=== PATIENT | female | born 1990 | race Caucasian/White ===

== ENCOUNTER 2020-07-10 11:17 | Outpatient (CLI) | payer OTHER, SELFPAY ==
[2020-07-10 12:53] LABS: Free T4 Free Thyroxine 0.96 ng/mL (0.78-2.19); Vitamin D 25 Hydroxy 49.7 ng/mL
== END 2020-07-10 11:18 | disposition home or self-care (01) ==
PROVIDERS: PCP Family Medicine; Visit Provider Nurse Practitioner
DX: E55.9 Vitamin D deficiency, unspecified (principal); E53.8 Deficiency of other specified B group vitamins
CPT/HCPCS: 36415; 82306; 82607; 84439; 84443

== ENCOUNTER 2020-09-18 08:25 | Outpatient (CLI) | payer OTHER, SELFPAY ==
[2020-09-18 08:53] LABS: Hemoglobin A1C 5.5 % (<5.7)
[2020-09-18 08:58] LABS: Alanine Aminotransferase 13 U/L (4-35); Albumin Level 4.3 g/dL (3.5-5.1); Alkaline Phosphatase 84 U/L (38-126); Anion Gap 9 mmol/L (8-16); Aspartate Amino Transferase 18 U/L (14-36); Bilirubin,Total 0.3 mg/dL (0.2-1.3); Blood Urea Nitrogen 10 mg/dL (7-17); CRP 3.1 mg/dL (<1.0); Calcium 9.4 mg/dL (8.4-10.2); Carbon Dioxide 27 mmol/L (22-30); Chloride 103 mmol/L (98-107); Cholesterol 176 mg/dL (0-200); Estimated Glomerular Filt Rate > 60; Glucose 108 mg/dL (65-105); HDL Direct 48 mg/dL; Potassium 4.5 mmol/L (3.4-5.0); Sodium 139 mmol/L (137-145); Triglycerides 99 mg/dL (<150)
[2020-09-18 09:07] LABS: LDL Cholesterol Direct 102 mg/dL
== END 2020-09-18 08:26 | disposition home or self-care (01) ==
PROVIDERS: PCP Family Medicine; Visit Provider Nurse Practitioner
DX: Z13.9 Encounter for screening, unspecified (principal)
CPT/HCPCS: 36415; 80053; 80061; 83036; 86140

== ENCOUNTER 2020-10-01 10:23 | Outpatient (CLI) | payer OTHER, SELFPAY ==
[2020-10-01 11:06] LABS: Glucose 98 mg/dL (65-105)
== END 2020-10-01 10:24 | disposition home or self-care (01) ==
LOC: ANHLAB 10:27
PROVIDERS: PCP Family Medicine; Visit Provider Obstetrics & Gynecology Gynecology
DX: R79.9 Abnormal finding of blood chemistry, unspecified (principal)
CPT/HCPCS: 36415; 82947

== ENCOUNTER 2021-07-10 13:20 | Outpatient (CLI) | payer OTHER, SELFPAY ==
[2021-07-10 17:23] LABS: Free T4 Free Thyroxine 0.97 ng/mL (0.78-2.19); Vitamin D 25 Hydroxy 44.4 ng/mL
== END 2021-07-10 13:21 | disposition home or self-care (01) ==
LOC: ANHLAB 13:24
PROVIDERS: PCP Family Medicine; Visit Provider Nurse Practitioner
DX: E55.9 Vitamin D deficiency, unspecified (principal); Z13.29 Encounter for screening for other suspected endocrine disorder
CPT/HCPCS: 36415; 82306; 84439; 84443

== ENCOUNTER 2021-12-29 15:32 | Outpatient (CLI) | payer OTHER, SELFPAY ==
[2021-12-29 18:34] LABS: Total Triiodothyronine (T3) 1.51 NG/ML (0.97-1.69)
[2022-01-02 06:35] LABS: Thyroid Peroxidase Antibodies <1 IU/mL (<9)
== END 2021-12-29 15:33 | disposition home or self-care (01) ==
LOC: ANHOBOP 15:33
PROVIDERS: PCP Family Medicine; Visit Provider Family Medicine
DX: Z34.90 Encounter for supervision of normal pregnancy, unspecified, unspecified trimester (principal); Z3A.00 Weeks of gestation of pregnancy not specified
CPT/HCPCS: 36415; 84439; 84443; 84480; 86376

== ENCOUNTER 2021-12-30 11:06 | Outpatient (CLI) | payer OTHER, SELFPAY ==
--- NOTE | ~2021-12-30 | US_ITS ---
EXAMINATION: US thyroid EXAM DATE: 12/30/2021 11:26 INDICATION: E04.9 - Nontoxic goiter, unspecified . TECHNIQUE: Multiple grayscale and Doppler images of the thyroid were obtained (by a technologist who performed the scan) and subsequently reviewed. Individual nodules and recommendations may be reporte d in accordance with TI-RADS system as designated by the 2017 ACR White Paper TI-RADS committee. The re is no prior study for comparison. FINDINGS: The right thyroid lobe measures 4.5 x 1.5 x 1.4 cm, the left measuring 5.2 x 1.3 x 1.6 cm. There are a couple of nodules up to 3 mm in size, not clinically significant. IMPRESSION: 1. Unremarkable thyroid ultrasound exam. Reviewed, dictated and finalized at location [facility]
== END 2021-12-30 11:07 | disposition home or self-care (01) ==
LOC: ANHIMG 11:08
PROVIDERS: PCP Family Medicine; Visit Provider Family Medicine
DX: E04.9 Nontoxic goiter, unspecified (principal)
CPT/HCPCS: 76536

== ENCOUNTER 2022-01-19 01:22 | Day surgery (SDC) | payer OTHER, SELFPAY ==
[2022-01-11 13:30] VITALS: BMI 46.5
[2022-01-19 11:32] VITALS: BP 143/97; PULSE 103; RESP 18; TEMP 37.3; O2SAT 100
[2022-01-19] MEDS: LACTATED RINGERS 1,000 ML 150 ML IV CONT (11:39)
--- NOTE | 2022-01-19 11:42 | WPDGICN ---
Assessment and Plan Assessment and plan (1) History of colon polyps: Code(s): Z86.010 - Personal history of colonic polyps Status: Acute Assessment and Plan: Patient has a history of colon polyps. Plan is for surveillance colonoscopy at this time. (2) Endometriosis: Code(s): N80.9 - Endometriosis, unspecified Status: Acute Assessment and Plan: Patient known to have endometriosis. In the last several years she underwent surgery requiring resection of a portion of her colon because of implants of endometriosis on the external side of colon. GI Consult Note Consult date/time: 01/19/22 11:42 HPI: Carol Lester is a 32 year old female Presents for screening surveillance colonoscopy. Patient has a history of colon polyps identified by colonoscopy 2018. At that time she also had submucosal lesions. The superficial biopsies of these were not fruitful. Patient subsequently has been seen and followed by gynecology service she had surgery for endometriosis which required partial colectomy. It is presumed the submucosal lesions were endometrial implants on the colon. Patient presents today for follow-up colonoscopy because of prior history of colon polyps she states that her current weight appetite bowel movements are normal. Family history is noncontributory. Review of Systems Review of Systems: All systems reviewed & are unremarkable except as noted in HPI and below PMFSH Past Medical History Medical History (Updated 01/19/22 @ 11:43 by Mik Schuster MD) Endometrioma Endometriosis Surgical History Surgical History (Updated 12/24/21 @ 09:33 by Angelika Espinoza MD) History of colon resection Family History Family History (Updated 12/24/21 @ 09:20 by Angelika Espinoza MD) Mother Family history of thyroid disease Hyperthyroidism Father Hypertension Grandparent Malignant neoplasm of prostate Family history of lung cancer Sibling Rheumatoid arthritis PCOS (polycystic ovarian syndrome) Social History Social History (Updated 12/24/21 @ 08:50 by Jami Campbell) Social History: Smoking status: Never smoker Second hand tobacco smoke exposure: No Alcohol intake: current Alcohol use details: drinks twice a year Substance use: never Substance use type: does not use Living arrangements: with family Gender identity (if verbalized by the patient): Female Sexual Orientation (if Verbalized by the Patient): Straight or Heterosexual Spiritual care concerns: No Meds Home Medications and Allergies Home Medications Medication Instructions Recorded Confirmed Type cholecalciferol (vitamin D3) 1,250 1,250 mcg PO WEEKLY 12/24/21 01/11/22 History mcg (50,000 unit) capsule sertraline 50 mg tablet 50 mg PO DAILY 12/24/21 01/11/22 History Allergies Allergy/AdvReac Type Severity Reaction Status Date / Time No Known Allergies Allergy Verified 01/19/22 11:28 Vital Signs Vital Signs - 24 hr 01/19/22 11:32 Temperature 99.2 F Pulse Rate 103 H Respiratory Rate 18 Blood Pressure 143/97 H Pulse Oximetry 100 Exam Narrative: Physical exam reveals patient to be alert. Vital signs stayed. HE EENT exam is unremarkable. Patient is anicteric. Lungs are clear to auscultation and percussion. Heart is without murmur or extra sounds. Abdominal exam bowel sounds present soft nontender with no hepatosplenomegaly. Digital external rectal exam is normal.
--- NOTE | 2022-01-19 11:47 | P.PNAN_ITS ---
Anes - Initial Pre Proc Eval Procedure: Operation Date: 01/19/22 13:30 Proposed Procedures p Screening Colonoscopy - Mik Schuster MD Date/Time: 01/19/22 11:47 Surgeon: Mik Schuster MD Pre Op Diagnosis: hx of colon polyps/mass, hx of colon resection Patient Data Age: 32 Gender: F Height: 1.65 m Weight: 129.1 kg Last Vital Signs Temp 99.2 F 01/19/22 11:32 Pulse 103 H 01/19/22 11:32 Resp 18 01/19/22 11:32 BP 143/97 H 01/19/22 11:32 Pulse Ox 100 01/19/22 11:32 Allergies Allergy/AdvReac Type Severity Reaction Status Date / Time No Known Allergies Allergy Verified 01/19/22 11:28 Home Medications Medication Instructions Recorded Confirmed Type cholecalciferol (vitamin D3) 1,250 1,250 mcg PO WEEKLY 12/24/21 01/11/22 History mcg (50,000 unit) capsule sertraline 50 mg tablet 50 mg PO DAILY 12/24/21 01/11/22 History Patient hx anesthesia problems: none Family hx anesthesia problems: none Results Review: All pre-operative results and documents have been reviewed as part of the pre-operative evaluation. [facility] Past Medical History Medical History (Updated 01/19/22 @ 11:43 by Mik Schuster MD) Endometrioma Endometriosis Surgical History Surgical History (Updated 12/24/21 @ 09:33 by Angelika Espinoza MD) History of colon resection Family History Family History (Updated 12/24/21 @ 09:20 by Angelika Espinoza MD) Mother Family history of thyroid disease Hyperthyroidism Father Hypertension Grandparent Malignant neoplasm of prostate Family history of lung cancer Sibling Rheumatoid arthritis PCOS (polycystic ovarian syndrome) Social History Social History (Updated 12/24/21 @ 08:50 by Jami Campbell) Social History: Smoking status: Never smoker Second hand tobacco smoke exposure: No Alcohol intake: current Alcohol use details: drinks twice a year Substance use: never Substance use type: does not use Living arrangements: with family Gender identity (if verbalized by the patient): Female Sexual Orientation (if Verbalized by the Patient): Straight or Heterosexual Spiritual care concerns: No Anes - Eval Final PreProcedure Day of Procedure 01/19/22 11:47 Patient weight: morbidly obese Heart: regular rate and rhythm Lungs: clear to auscultation Airway: Mallampati scale class II Neurological: alert and oriented Last oral intake: >/= 8 hours ASA classification: III Emergent: no Anesthetic plan: proceed Anesthesia type and monitoring: general GIVS and standard monitoring Results Review: All pre-operative results and documents have been reviewed as part of the pre-operative evaluation. Informed Consent: The patient's anesthetic plan and its attendant risks and benefits were discussed with the patient/family/POA. Questions were solicited and answers provided to the satisfaction of the patient/family/POA.
[2022-01-19 12:21] VITALS: BP 112/72; PULSE 74; RESP 21; O2SAT 98
[2022-01-19 12:31] VITALS: BP 123/79; PULSE 75; RESP 18; O2SAT 100
[2022-01-19 12:41] VITALS: BP 131/83; PULSE 76; RESP 20; O2SAT 99
== END 2022-01-19 12:52 | disposition home or self-care (01) ==
PROVIDERS: PCP Family Medicine; Visit Provider Internal Medicine Gastroenterology
PROC: 0DJD8ZZ Inspection of Lower Intestinal Tract, Via Natural or Artificial Opening Endoscopic (ICD-10-PCS; CPT 45378; principal; 2022-01-19 13:30)
DX: Z12.11 Encounter for screening for malignant neoplasm of colon (principal); Z86.010 Personal history of colon polyps; N80.9 Endometriosis, unspecified; Z98.0 Intestinal bypass and anastomosis status; Z90.49 Acquired absence of other specified parts of digestive tract; Z87.19 Personal history of other diseases of the digestive system; E66.01 Morbid (severe) obesity due to excess calories; Z68.42 Body mass index [BMI] 45.0-49.9, adult
CPT/HCPCS: 45378; J2704; J7120

== ENCOUNTER 2022-07-14 13:15 | Outpatient (CLI) | payer OTHER, SELFPAY ==
[2022-07-14 14:24] LABS: Anion Gap 11 mmol/L (8-16); Blood Urea Nitrogen 7 mg/dL (7-17); Calcium 9.5 mg/dL (8.4-10.2); Carbon Dioxide 26 mmol/L (22-30); Chloride 99 mmol/L (98-107); Estimated Glomerular Filt Rate > 60; Glucose 100 mg/dL (65-110); Potassium 3.7 mmol/L (3.4-5.0); Sodium 136 mmol/L (137-145)
== END 2022-07-14 13:16 | disposition home or self-care (01) ==
LOC: ANHLAB 13:15
PROVIDERS: PCP Family Medicine; Visit Provider Family Medicine
DX: I10 Essential (primary) hypertension (principal)
CPT/HCPCS: 36415; 80048

== ENCOUNTER 2022-07-30 13:32 | Outpatient (CLI) | payer OTHER, SELFPAY ==
[2022-07-30 14:49] LABS: HIV 1/2 Ab P24 Ag Result Negative (Negative)
[2022-07-30 16:25] LABS: Vitamin D 25 Hydroxy 58.9 ng/mL
[2022-07-30 16:40] LABS: Hepatitis B Surface Antigen Negative (Negative)
[2022-07-30 16:45] LABS: HAV RESULT Negative (Negative); Hepatitis B Core IgM Result Negative (Negative)
[2022-07-30 16:57] LABS: Hepatitis C Virus Antibody Negative (Negative)
[2022-08-02 07:53] LABS: Rapid Plasma Reagin Non-Reactive (NonReactive)
== END 2022-07-30 13:33 | disposition home or self-care (01) ==
LOC: ANHLAB 13:34
PROVIDERS: Visit Provider Nurse Practitioner
DX: Z11.3 Encounter for screening for infections with a predominantly sexual mode of transmission (principal)
CPT/HCPCS: 36415; 80074; 82306; 86592; 86703; G0432

== ENCOUNTER 2022-11-25 06:39 | Outpatient (CLI) | payer OTHER, SELFPAY ==
[2022-11-25 09:20] LABS: HIV 1/2 Ab P24 Ag Result Negative (Negative)
[2022-11-25 10:42] LABS: Rapid Plasma Reagin Non-Reactive (NonReactive)
[2022-11-25 12:09] LABS: Hepatitis B Surface Antigen Negative (Negative)
[2022-11-25 12:14] LABS: HAV RESULT Negative (Negative); Hepatitis B Core IgM Result Negative (Negative)
[2022-11-25 12:26] LABS: Hepatitis C Virus Antibody Negative (Negative)
== END 2022-11-25 06:40 | disposition home or self-care (01) ==
PROVIDERS: Visit Provider Nurse Practitioner
DX: Z11.3 Encounter for screening for infections with a predominantly sexual mode of transmission (principal)
CPT/HCPCS: 36415; 80074; 80076; 86592; 86703; G0432

== ENCOUNTER 2023-02-12 02:19 | Emergency (ER) | payer OTHER, SELFPAY ==
[2023-02-12] VITALS (12 sets, daily range): BP systolic 127–152; BP diastolic 65–90; PULSE 72–101; RESP 16–20; TEMP 36.9; O2SAT 99–100
[2023-02-12 03:31] LABS: Basophils Percent Auto 0.3 % (0.2-1.2); Eosinophils Absolute Auto 0.1 K/mm3 (0-0.3); Eosinophils Percent Auto 0.6 % (0-4.4); Hematocrit 40.5 % (37.0-47.0); Hemoglobin 12.6 g/dL (12.0-15.0); Immature Granulocyte Absolute 0.02 K/mm3 (0.00-0.031); Immature Granulocyte Percent A 0.2 % (0-0.5); Lymphocytes Absolute Auto 1.67 K/mm3 (0.9-3.2); Lymphocytes Percent Auto 16.8 % (18.3-44.2); Mean Corpuscular HGB Conc 31.1 g/dl (32-36); Mean Corpuscular Hemoglobin 27.9 pg (26-34); Mean Corpuscular Volume 89.6 fl (80-100); Mean Platelet Volume 8.9 fl (7.4-10.4); Monocytes Absolute Auto 0.5 K/mm3 (0.1-0.6); Monocytes Percent Auto 5.2 % (2.6-8.5); Neutrophils Absolute Auto 7.7 K/mm3 (1.3-6.7); Neutrophils Percent Auto 76.9 % (45.5-73.1); Platelet Count Result 461 k/mm3 (150-375); Red Blood Count 4.52 M/mm3 (4.2-5.4); Red Cell Distribution Width 14.6 % (11.5-14.5)
[2023-02-12 03:42] LABS: Appearance Urine Clear (Clear); Bacteria Urine None Seen /hpf; Bilirubin Urine 1+ (Negative); Blood Urine 1+ (Negative); Color Urine Dark Yellow (Yellow); Glucose Urine UA Negative (Negative); Ketones Urine Negative (Negative); Leukocyte Esterase Ur Trace LEU/UL (Negative); Nitrate Urine Negative (Negative); Non Pathogenic Casts 0-2; Protein Urine Negative (Negative); Specific Grav Ur 1.012 (1.001-1.035); Squamous Epithelial Cell Urine Few /hpf (Few)
[2023-02-12 03:57] LABS: Add Urine Microscopic? YES
[2023-02-12 04:13] LABS: Alanine Aminotransferase 253 U/L (6-35); Albumin Level 4.2 g/dL (3.5-5.1); Alkaline Phosphatase 307 U/L (38-126); Anion Gap 8 mmol/L (8-16); Aspartate Amino Transferase 311 U/L (14-36); Blood Urea Nitrogen 6 mg/dL (7-17); Calcium 8.9 mg/dL (8.4-10.2); Carbon Dioxide 29 mmol/L (22-30); Chloride 98 mmol/L (98-107); Estimated CRCL calculation 166 ml/min; Estimated Glomerular Filt Rate > 60; Glucose 131 mg/dL (65-110); Potassium 3.2 mmol/L (3.4-5.0); Sodium 135 mmol/L (137-145)
--- NOTE | 2023-02-12 04:41 | ED.GENADULT ---
HPI - General Adult General Chief complaint: Abdominal Pain Stated complaint: abd pain Time Seen by Provider: 02/12/23 03:09 History of Present Illness HPI narrative: Is a 33-year-old female presenting ED with chief complaint of abdominal pain. Patient has been having intermittent right upper quadrant abdominal pain that is associated with fatty foods for the last year. However last night around 930 she had some pizza. Now she is having constant pressure in the right upper quadrant that radiates to her back, 7 out 10 intensity and constant. She has experiences past but is always resolved on its own. Pain is exacerbated by eating and sometimes is relieved when she lays on her left side. Patient has had some associated nausea, but no vomiting. She denies fever chills, diarrhea, urinary symptoms chest pain difficulty Related Data Home Medications Medication Instructions Recorded Confirmed cholecalciferol (vitamin D3) 1,250 1,250 mcg PO WEEKLY 12/24/21 07/15/22 mcg (50,000 unit) capsule sertraline 50 mg tablet (Zoloft) 50 mg PO DAILY 12/24/21 07/15/22 Allergies Allergy/AdvReac Type Severity Reaction Status Date / Time No Known Allergies Allergy Verified 07/15/22 09:01 [facility] Past Medical History Medical History Endometrioma Endometriosis Surgical History Surgical History History of colon resection Family History Family History Mother Family history of thyroid disease Hyperthyroidism Father Hypertension Grandparent Malignant neoplasm of prostate Family history of lung cancer Sibling Rheumatoid arthritis PCOS (polycystic ovarian syndrome) Social History Social History Social History: Smoking status: Never smoker Second hand tobacco smoke exposure: No Alcohol intake: current Alcohol use details: drinks twice a year Substance use: never Substance use type: does not use Living arrangements: with family Occupation/Education: occupation Gender identity (if verbalized by the patient): Female Sexual Orientation (if Verbalized by the Patient): Straight or Heterosexual Spiritual care concerns: No Exam Narrative: APPEARANCE: No apparent distress. Head: atraumatic. EYES: EOMI, NOSE: Atraumatic NECK: Trachea midline RESPIRATORY: No increased rate of breathing CARDIOVASCULAR: RRR, ABDOMINAL: tenderness to palpation the right upper quadrant without guarding or rebound. point of care right upper quadrant ultrasound showed multiple gallstones in the gallbladder with out significant gallbladder wall thickening. MUSCULOSKELETAl: No obvious deformities NEURO: Alert. Moving 4/4 extremities SKIN:: Warm, dry. Normal color PSYCHIATRIC: Normal affect Course Vital Signs Vital signs: Vital Signs Temperature 98.4 F 02/12/23 02:22 Pulse Rate 101 H 02/12/23 02:22 Respiratory Rate 20 02/12/23 02:22 Blood Pressure 152/90 H 02/12/23 02:22 Pulse Oximetry 99 02/12/23 02:22 Oxygen Delivery Room Air 02/12/23 02:22 Temperature 98.4 F 02/12/23 02:22 Pulse Rate 88 02/12/23 06:02 Respiratory Rate 16 02/12/23 06:02 Blood Pressure 133/78 02/12/23 06:02 Pulse Oximetry 100 02/12/23 06:02 Oxygen Delivery Room Air 02/12/23 02:22 Medical Decision Making MDM Narrative Medical decision making narrative: -Presentation: This is a 33-year-old female presenting with right upper quadrant abdominal pain. 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 She lives alone. -External Chart Review: None -Hx from independent Sources:
[2023-02-12 04:43] LABS: Lipase 17884 U/L (23-300)
[2023-02-12] MEDS: SODIUM CHLORIDE 0.9% IV 2,000 ML 999 ML IV CONT (04:47)
[2023-02-12] MEDS: ONDANSETRON INJ 4 MG/2 ML VIAL IV PUSH (04:48)
[2023-02-12] MEDS: HYDROmorphone HCL INJ (*CRX) 1 MG/ML SYR 0.5 MG IV PUSH ×2 (04:48→06:59)
[2023-02-12] MEDS: FAMOTIDINE 20 MG/2 ML VIAL IV PUSH (04:59)
[2023-02-12] MEDS: POTASSIUM CHLORIDE 20 MEQ TABLET 40 MEQ PO (05:04)
== END 2023-02-12 07:49 | disposition short-term general hospital (02) ==
PROVIDERS: Emergency Provider Emergency Medicine; PCP Family Medicine
DX: Z90.49 Acquired absence of other specified parts of digestive tract (principal); K85.10 Biliary acute pancreatitis without necrosis or infection; N80.9 Endometriosis, unspecified; R79.89 Other specified abnormal findings of blood chemistry
CPT/HCPCS: 36415; 80053; 81001; 81025; 83690; 85025; 87086; 96361; 96374; 96375; 96376; 99285; A9270; J1170; J2405; J7030

== ENCOUNTER 2023-07-27 14:06 | Outpatient (CLI) | payer OTHER, SELFPAY | END 2023-07-27 14:07 | disposition home or self-care (01) | LOC: ANHLAB 14:09 | PROVIDERS: PCP Family Medicine; Visit Provider Nurse Practitioner | DX: E55.9 Vitamin D deficiency, unspecified (principal); Z01.419 Encounter for gynecological examination (general) (routine) without abnormal findings | CPT/HCPCS: 36415; 82306; 84439; 84443 ==

== ENCOUNTER 2024-08-14 16:31 | Outpatient (CLI) | payer OTHER, SELFPAY ==
[2024-08-14 18:44] LABS: Vitamin D 25 Hydroxy 54.5 ng/mL
== END 2024-08-14 16:32 | disposition home or self-care (01) ==
LOC: ANHLAB 16:35
PROVIDERS: PCP Family Medicine; Visit Provider Nurse Practitioner
DX: E55.9 Vitamin D deficiency, unspecified (principal)
CPT/HCPCS: 36415; 82306